=== PATIENT | male | born 1940 | race Caucasian/White ===

== ENCOUNTER 2016-07-24 06:05 | Inpatient (IN) | payer OTHER, BC ==
[2016-07-24] VITALS (10 sets, daily range): BP systolic 116–145; BP diastolic 64–94
[~2016-07-24] VITALS: Ht 180.3 cm; Wt 74.1 kg
[~2016-07-24 06:05] MED LIST: ALTACE2.5 MG PO; ALTACE5 MG PO; ASPIR 8181 M1 PO; ASPIR 8181 MG PO; CALTRATE 600600 MG PO; CO Q-10200 MG PO; COUMADIN2 MG PO; COUMADIN3 M1 PO; COUMADIN3 MG PO; CRESTOR20 MG PO; GLUCOSAMINE &1 EACH PO; METHYFOLATE PO; NITROSTAT0.4 MG SL; TOPROL XL100 MG PO; TOPROL XL25 MG PO; VITAMIN D31000 UNI2 PO; XANAX0.25 MG PO; ZETIA10 MG PO
[2016-07-24 06:43] LABS: HEMATOCRIT 25.4 % (38.0-50.0); MCH 27.7 PG (29.0-34.0); MCHC 33.1 G/DL (30.0-36.0); MCV 83.8 FL (86-99); PLATELET COUNT 378 K/uL (156-360); RBC DIS.WIDTH-CV 19.5 % (11.8-14.6); RBC DIS.WIDTH-SD 57.5 % (39-53); RED BLOOD COUNT 3.03 M/uL (4.00-5.50); WHITE BLOOD COUNT 7.2 K/uL (4.1-10.2)
[2016-07-24 07:18] LABS: ANION GAP 10 MEQ/L (2-14); CHLORIDE 98 MEQ/L (99-109); SAMPLE HEMOLYSIS CHECK 0; SAMPLE ICTERIC CHECK 0; SAMPLE LIPEMIA CHECK 0; SODIUM 130 MEQ/L (136-147); TOTAL BILIRUBIN 0.7 MG/DL (0.0-1.0)
[2016-07-24 07:19] LABS: POTASSIUM 4.1 MEQ/L (3.7-5.4)
[2016-07-24 07:24] LABS: ALKALINE PHOSPHATASE 88 IU/L (3-129); GFR ESTIMATE (CALCULATED) > 59 mL/min/; GLUCOSE 126 mg/dL (70-99); UREA NITROGEN (BUN) 18 mg/dL (9-23)
[2016-07-24 08:45] LABS: INTER. NORMALIZED RATIO 3.2; PROTHROMBIN TIME 33.4 (9.2-11.2)
[2016-07-24 08:54] LABS: TROP-I INTERPRETATION NEGATIVE; TROPONIN-I < 0.01 ng/mL (0.0-0.30)
[2016-07-24 09:32] LABS: ADD MIUA? NO; BILIRUBIN SMALL; BLOOD NEGATIVE; COLOR DK YELLOW ((YELLOW)); GLUCOSE (STRIP) NEGATIVE; KETONES 15; LEUKOCYTES NEGATIVE; NITRITE NEGATIVE; PH, URINE 5.5 (5-8); PROTEIN (STRIP) NEGATIVE; SPECIFIC GRAVITY 1.025 (1.000-1.030); UCUL ADDED? NO
[2016-07-24] MEDS ORDERED: METOPROLOL SUCC50 MG PO (09:56)
[2016-07-24] MEDS ORDERED: CALTRATE 600 +1 EAC1 PO (09:59)
[2016-07-24] MEDS ORDERED: LASIX20 MG PO (09:59)
[2016-07-24] MEDS ORDERED: FERROUS SULFAT325 MG PO (10:00)
[2016-07-24] MEDS ORDERED: ANORO ELLIPTA1 EACH IH (10:00)
[2016-07-24] MEDS ORDERED: DEXILANT30 MG PO (10:01)
[2016-07-24] MEDS ORDERED: METFORMIN HCL500 MG PO (10:01)
[2016-07-24] MEDS ORDERED: PROBIOTIC1 EAC1 PO (10:02)
[2016-07-24] MEDS ORDERED: B-COMPLEX-VITA1 EACH PO (10:03)
[2016-07-24 16:02] LABS: PROTHROMBIN TIME 21.2 (9.2-11.2)
[2016-07-24 18:17] LABS: INTER. NORMALIZED RATIO 1.7; PROTHROMBIN TIME 17.3 (9.2-11.2)
[2016-07-25 00:50] LABS: CHLORIDE 101 mEq/L (99-109); HEMATOCRIT 28.1 % (38.0-50.0); MCH 27.6 PG (29.0-34.0); MCHC 32.4 G/DL (30.0-36.0); MCV 85.2 FL (86-99); MEAN PLAT.VOLUME 9.1 uM^3 (9.0-12.4); PLATELET COUNT 285 K/uL (156-360); POTASSIUM 3.8 mEq/L (3.7-5.4); RBC DIS.WIDTH-CV 19.1 % (11.8-14.6); RBC DIS.WIDTH-SD 58.3 % (39-53); SODIUM 133 mEq/L (136-147)
[2016-07-25 00:51] LABS: WHITE BLOOD COUNT 1.1 K/uL (4.1-10.2)
[2016-07-25 00:52] LABS: GLUCOSE 132 mg/dL (70-99)
[2016-07-25 00:53] LABS: ANION GAP 12 MEQ/L (2-14)
[2016-07-25 00:56] LABS: GFR ESTIMATE (CALCULATED) > 59 mL/min/; UREA NITROGEN (BUN) 17 mg/dL (9-23)
[2016-07-25 01:17] VITALS: BP 105/61
[2016-07-25 04:30] VITALS: BP 108/65
[2016-07-25 06:18] LABS: EOSINOPHIL (%) 0 % (0-5); HEMATOCRIT 26.6 % (38.0-50.0); LYMPHOCYTE COUNT 0.4 K/uL (1.0-2.8); MCH 27.6 PG (29.0-34.0); MCHC 32.7 G/DL (30.0-36.0); MCV 84.4 FL (86-99); MEAN PLAT.VOLUME 9.4 uM^3 (9.0-12.4); MONOCYTE (%) 23.6 % (3-12); MONOCYTE COUNT 0.6 K/uL (0-0.8); NEUTROPHIL COUNT 1.6 K/uL (1.8-6.4); PLATELET COUNT 254 K/uL (156-360); RBC DIS.WIDTH-SD 58.6 % (39-53); RED BLOOD COUNT 3.15 M/uL (4.00-5.50)
[2016-07-25 06:20] LABS: WHITE BLOOD COUNT 2.5 K/uL (4.1-10.2)
[2016-07-25 06:43] LABS: ANION GAP 10 MEQ/L (2-14); CHLORIDE 102 MEQ/L (99-109); GFR ESTIMATE (CALCULATED) > 59 mL/min/; GLUCOSE 107 mg/dL (70-99); POTASSIUM 3.2 MEQ/L (3.7-5.4); SAMPLE HEMOLYSIS CHECK 0; SAMPLE ICTERIC CHECK 0; SAMPLE LIPEMIA CHECK 0; SODIUM 133 MEQ/L (136-147); UREA NITROGEN (BUN) 19 mg/dL (9-23)
[2016-07-25 07:46] VITALS: BP 123/72
[2016-07-25 09:02] LABS: INTER. NORMALIZED RATIO 1.4; PROTHROMBIN TIME 14.7 (9.2-11.2)
[2016-07-25 09:16] LABS: HEMATOLOGY COMMENT 1 SMEAR COMPATIBLE; USER ID SDF
[2016-07-25 12:13] VITALS: BP 111/72
[2016-07-25 16:42] VITALS: BP 113/61
[2016-07-25 19:24] LABS: INTER. NORMALIZED RATIO 1.5; PROTHROMBIN TIME 15.6 (9.2-11.2)
[2016-07-25 20:36] VITALS: BP 127/74
[2016-07-26] VITALS (7 sets, daily range): BP systolic 115–134; BP diastolic 59–76
[2016-07-26 06:30] LABS: HEMATOCRIT 27.1 % (38.0-50.0); MCH 27.7 PG (29.0-34.0); MCHC 32.5 G/DL (30.0-36.0); MCV 85.2 FL (86-99); PLATELET COUNT 263 K/uL (156-360); RBC DIS.WIDTH-CV 19.1 % (11.8-14.6); RBC DIS.WIDTH-SD 59.3 % (39-53); RED BLOOD COUNT 3.18 M/uL (4.00-5.50)
[2016-07-26 07:06] LABS: ANION GAP 10 MEQ/L (2-14); CHLORIDE 105 MEQ/L (99-109); GFR ESTIMATE (CALCULATED) > 59 mL/min/; GLUCOSE 110 mg/dL (70-99); SAMPLE HEMOLYSIS CHECK 2; SAMPLE ICTERIC CHECK 0; SAMPLE LIPEMIA CHECK 0; SODIUM 137 MEQ/L (136-147); UREA NITROGEN (BUN) 25 mg/dL (9-23)
[2016-07-26 07:09] LABS: POTASSIUM 4.9 MEQ/L (3.7-5.4)
[2016-07-26 18:27] LABS: INTER. NORMALIZED RATIO 1.4
[2016-07-27 04:10] VITALS: BP 109/63
[2016-07-27 07:55] VITALS: BP 96/56
[2016-07-27 08:03] LABS: HEMATOCRIT 27.7 % (38.0-50.0); MCH 27.5 PG (29.0-34.0); MCHC 32.9 G/DL (30.0-36.0); MCV 83.7 FL (86-99); MEAN PLAT.VOLUME 9.7 uM^3 (9.0-12.4); PLATELET COUNT 260 K/uL (156-360); RBC DIS.WIDTH-CV 19.1 % (11.8-14.6); RBC DIS.WIDTH-SD 58.8 % (39-53); RED BLOOD COUNT 3.31 M/uL (4.00-5.50); WHITE BLOOD COUNT 3.3 K/uL (4.1-10.2)
[2016-07-27 11:01] LABS: ANION GAP 14 MEQ/L (2-14); CHLORIDE 110 MEQ/L (99-109); GFR ESTIMATE (CALCULATED) > 59 mL/min/; GLUCOSE 91 mg/dL (70-99); POTASSIUM 4.4 MEQ/L (3.7-5.4); SAMPLE HEMOLYSIS CHECK 0; SAMPLE ICTERIC CHECK 0; SAMPLE LIPEMIA CHECK 0; SODIUM 140 MEQ/L (136-147); UREA NITROGEN (BUN) 35 mg/dL (9-23)
[2016-07-27 16:47] VITALS: BP 104/65
[2016-07-27 18:27] LABS: INTER. NORMALIZED RATIO 1.5; PROTHROMBIN TIME 15.9 (9.2-11.2)
[2016-07-27 19:37] VITALS: BP 92/65
[2016-07-27 23:35] VITALS: BP 153/58
[2016-07-28] VITALS (10 sets, daily range): BP systolic 60–152; BP diastolic 43–78
[2016-07-28 06:46] LABS: ANION GAP 12 MEQ/L (2-14); CHLORIDE 102 MEQ/L (99-109); GFR ESTIMATE (CALCULATED) > 59 mL/min/; SAMPLE HEMOLYSIS CHECK 0; SAMPLE ICTERIC CHECK 0; SAMPLE LIPEMIA CHECK 0; SODIUM 136 MEQ/L (136-147); UREA NITROGEN (BUN) 38 mg/dL (9-23)
[2016-07-28 06:48] LABS: GLUCOSE 155 mg/dL (70-99); POTASSIUM 3.4 MEQ/L (3.7-5.4)
[2016-07-28 18:13] LABS: INTER. NORMALIZED RATIO 1.8; PROTHROMBIN TIME 18.7 (9.2-11.2)
[2016-07-28 20:35] LABS: HEMATOCRIT 26.4 % (38.0-50.0); MCH 26.5 PG (29.0-34.0); MCV 80.5 FL (86-99); MEAN PLAT.VOLUME 9.5 uM^3 (9.0-12.4); PLATELET COUNT 207 K/uL (156-360); RBC DIS.WIDTH-CV 18.1 % (11.8-14.6); RBC DIS.WIDTH-SD 53.4 % (39-53); RED BLOOD COUNT 3.28 M/uL (4.00-5.50)
[2016-07-28 21:34] LABS: C DIFF TOXIN POSITIVE (NEGATIVE)
[2016-07-28 21:37] LABS: PROBE CHECK PASS
[2016-07-29] VITALS (12 sets, daily range): BP systolic 58–92; BP diastolic 36–59
[2016-07-29 05:10] LABS: METH RESISTANT S AUREUS PCR NEGATIVE (NEGATIVE)
[2016-07-29 05:13] LABS: PROBE CHECK PASS; SPECIMEN PROCESSING CONTROL PASS
[2016-07-29 06:55] LABS: EOSINOPHIL (%) 0.2 % (0-5); HEMATOCRIT 32.9 % (38.0-50.0); IMMATURE GRANULOCYTE (%) 0.6 % (0.0-0.7); IMMATURE GRANULOCYTE COUNT 0.1 K/uL; LYMPHOCYTE COUNT 0.7 K/uL (1.0-2.8); MCH 28.1 PG (29.0-34.0); MCHC 34.3 G/DL (30.0-36.0); MCV 81.8 FL (86-99); MONOCYTE (%) 9.8 % (3-12); NEUTROPHIL (%) 82.2 % (45-76); NEUTROPHIL COUNT 8.1 K/uL (1.8-6.4); RBC DIS.WIDTH-CV 17.7 % (11.8-14.6); RBC DIS.WIDTH-SD 52.9 % (39-53)
[2016-07-29 07:03] LABS: RED BLOOD COUNT 4.02 M/uL (4.00-5.50); WHITE BLOOD COUNT 9.9 K/uL (4.1-10.2)
[2016-07-29 07:18] LABS: CHLORIDE 102 MEQ/L (99-109); GFR ESTIMATE (CALCULATED) 35 mL/min/; POTASSIUM 3.5 MEQ/L (3.7-5.4); SODIUM 137 MEQ/L (136-147); UREA NITROGEN (BUN) 52 mg/dL (9-23)
[2016-07-29 07:19] LABS: ANION GAP 12 MEQ/L (2-14); MAGNESIUM 2.6 mg/dl (1.3-2.7); SAMPLE HEMOLYSIS CHECK 0; SAMPLE ICTERIC CHECK 0; SAMPLE LIPEMIA CHECK 0
[2016-07-29 07:24] LABS: GLUCOSE 102 mg/dL (70-99)
[2016-07-29 07:50] LABS: HEMATOLOGY COMMENT 1 SMEAR COMPATIBLE; MEAN PLAT.VOLUME 9.8 uM^3 (9.0-12.4); PLAT.SUFFICIENCY ADEQUATE; USER ID CL
[2016-07-29 08:16] LABS: PLATELET COUNT 144 K/uL (156-360)
[2016-07-29 14:37] LABS: UR CREATININE CONCENTRATION 167.2 MG/DL
[2016-07-29 19:00] LABS: ANION GAP 8 MEQ/L (2-14); CHLORIDE 105 MEQ/L (99-109); GFR ESTIMATE (CALCULATED) 45 mL/min/; GLUCOSE 137 mg/dL (70-99); POTASSIUM 2.8 MEQ/L (3.7-5.4); SAMPLE HEMOLYSIS CHECK 0; SAMPLE ICTERIC CHECK 0; SAMPLE LIPEMIA CHECK 0; SODIUM 141 MEQ/L (136-147); UREA NITROGEN (BUN) 48 mg/dL (9-23)
[2016-07-29 19:02] LABS: INTER. NORMALIZED RATIO 2.3; PROTHROMBIN TIME 23.7 (9.2-11.2)
[2016-07-30] VITALS (10 sets, daily range): BP systolic 73–106; BP diastolic 40–66
[2016-07-30 03:21] LABS: CHLORIDE 106 mEq/L (99-109); POTASSIUM 2.9 mEq/L (3.7-5.4); SODIUM 145 mEq/L (136-147)
[2016-07-30 03:22] LABS: GLUCOSE 140 mg/dL (70-99)
[2016-07-30 03:24] LABS: ANION GAP 11 MEQ/L (2-14)
[2016-07-30 03:26] LABS: GFR ESTIMATE (CALCULATED) > 59 mL/min/
[2016-07-30 03:27] LABS: UREA NITROGEN (BUN) 48 mg/dL (9-23)
[2016-07-30 05:00] LABS: ADD MIUA? YES; BILIRUBIN SMALL; BLOOD LARGE; GLUCOSE (STRIP) NEGATIVE; KETONES TRACE; LEUKOCYTES SMALL; NITRITE POSITIVE; PH, URINE 5.5 (5-8); PROTEIN (STRIP) TRACE; SPECIFIC GRAVITY 1.022 (1.000-1.030)
[2016-07-30 05:12] LABS: COLOR AMBER ((YELLOW))
[2016-07-30 05:25] LABS: CASTS PRESENT /LPF; COARSE GRANULAR CASTS 0-5 /LPF; EPITHELIAL CELLS 1+; FINE GRANULAR CASTS 0-5 /LPF; HYALINE CASTS 0-5 /LPF; MUCUS TRACE
[2016-07-30 05:27] LABS: BACTERIA RARE; CRYSTALS NONE SEEN; UCUL ADDED? NO; WHITE BLOOD CELLS 0-5 /HPF (0-5)
[2016-07-30 08:50] LABS: HEMATOCRIT 29.7 % (38.0-50.0); MCH 27.6 PG (29.0-34.0); MCHC 34.3 G/DL (30.0-36.0); MCV 80.3 FL (86-99); MEAN PLAT.VOLUME 10.3 uM^3 (9.0-12.4); PLATELET COUNT 129 K/uL (156-360); RBC DIS.WIDTH-CV 17.3 % (11.8-14.6); RBC DIS.WIDTH-SD 50.9 % (39-53); WHITE BLOOD COUNT 10.7 K/uL (4.1-10.2)
[2016-07-30 08:54] LABS: EOSINOPHIL (%) 0.2 % (0-5); IMMATURE GRANULOCYTE (%) 0.7 % (0.0-0.7); IMMATURE GRANULOCYTE COUNT 0.1 K/uL; LYMPHOCYTE COUNT 0.7 K/uL (1.0-2.8); MONOCYTE (%) 8.3 % (3-12); MONOCYTE COUNT 0.9 K/uL (0-0.8); NEUTROPHIL (%) 83.8 % (45-76)
[2016-07-30 09:29] LABS: MAGNESIUM 2.5 mg/dl (1.3-2.7)
[2016-07-30 10:24] LABS: HEMATOLOGY COMMENT 1 SMEAR COMPATIBLE; PLAT.SUFFICIENCY ADEQUATE
[2016-07-30 11:39] LABS: ANION GAP 8 MEQ/L (2-14); CHLORIDE 107 MEQ/L (99-109); GFR ESTIMATE (CALCULATED) > 59 mL/min/; GLUCOSE 141 mg/dL (70-99); POTASSIUM 3.3 MEQ/L (3.7-5.4); SODIUM 146 MEQ/L (136-147); UREA NITROGEN (BUN) 44 mg/dL (9-23)
[2016-07-30 13:50] LABS: ANION GAP 9 MEQ/L (2-14); CHLORIDE 108 MEQ/L (99-109); GFR ESTIMATE (CALCULATED) > 59 mL/min/; GLUCOSE 133 mg/dL (70-99); POTASSIUM 3.3 MEQ/L (3.7-5.4); SAMPLE HEMOLYSIS CHECK 0; SAMPLE ICTERIC CHECK 0; SAMPLE LIPEMIA CHECK 0; SODIUM 149 MEQ/L (136-147); UREA NITROGEN (BUN) 40 mg/dL (9-23)
[2016-07-30 18:25] LABS: ANION GAP 8 MEQ/L (2-14); CHLORIDE 109 MEQ/L (99-109); GFR ESTIMATE (CALCULATED) > 59 mL/min/; GLUCOSE 124 mg/dL (70-99); MAGNESIUM 2.4 mg/dl (1.3-2.7); POTASSIUM 3.5 MEQ/L (3.7-5.4); SAMPLE HEMOLYSIS CHECK 0; SAMPLE ICTERIC CHECK 0; SAMPLE LIPEMIA CHECK 0; SODIUM 152 MEQ/L (136-147); UREA NITROGEN (BUN) 35 mg/dL (9-23)
[2016-07-30 19:18] LABS: INTER. NORMALIZED RATIO 2.8; PROTHROMBIN TIME 29.8 (9.2-11.2)
[2016-07-31] VITALS (14 sets, daily range): BP systolic 75–112; BP diastolic 36–71
[2016-07-31 00:35] LABS: CHLORIDE 112 mEq/L (99-109); POTASSIUM 3.1 mEq/L (3.7-5.4); SODIUM 155 mEq/L (136-147)
[2016-07-31 00:36] LABS: MAGNESIUM 2.2 mg/dL (1.3-2.7)
[2016-07-31 00:37] LABS: GLUCOSE 125 mg/dL (70-99)
[2016-07-31 00:38] LABS: ANION GAP 10 MEQ/L (2-14)
[2016-07-31 00:41] LABS: GFR ESTIMATE (CALCULATED) > 59 mL/min/
[2016-07-31 00:42] LABS: UREA NITROGEN (BUN) 33 mg/dL (9-23)
[2016-07-31 06:04] LABS: BASOPHIL COUNT 0.1 K/uL (0-0.1); EOSINOPHIL (%) 0.4 % (0-5); HEMATOLOGY COMMENT 1 REV; IMMATURE GRANULOCYTE (%) 1.5 % (0.0-0.7); IMMATURE GRANULOCYTE COUNT 0.1 K/uL; LYMPHOCYTE COUNT 0.7 K/uL (1.0-2.8); MCHC 33.3 G/DL (30.0-36.0); MCV 83.9 FL (86-99); MEAN PLAT.VOLUME 11.2 uM^3 (9.0-12.4); MONOCYTE (%) 6.1 % (3-12); MONOCYTE COUNT 0.5 K/uL (0-0.8); NEUTROPHIL (%) 82.4 % (45-76); NEUTROPHIL COUNT 6.6 K/uL (1.8-6.4); NRBC (%) 2.3 /100 WBC (0-0); PLAT.SUFFICIENCY DECREASED; PLATELET COUNT 82 K/uL (156-360); RBC DIS.WIDTH-CV 18.1 % (11.8-14.6); RBC DIS.WIDTH-SD 55.2 % (39-53); RED BLOOD COUNT 3.22 M/uL (4.00-5.50); USER ID SLU
[2016-07-31 06:08] LABS: ALKALINE PHOSPHATASE 46 IU/L (3-129); ANION GAP 11 MEQ/L (2-14); ANION GAP 7 MEQ/L (2-14); CHLORIDE 112 MEQ/L (99-109); GFR ESTIMATE (CALCULATED) > 59 mL/min/; GLUCOSE 103 mg/dL (70-99); GLUCOSE 109 mg/dL (70-99); MAGNESIUM 2.3 mg/dl (1.3-2.7); POTASSIUM 3.3 MEQ/L (3.7-5.4); PREALBUMIN < 3.0 mg/dL (10-40); SAMPLE HEMOLYSIS CHECK 0; SAMPLE ICTERIC CHECK 0; SAMPLE LIPEMIA CHECK 0; SODIUM 157 MEQ/L (136-147); SODIUM 159 MEQ/L (136-147); TRIGLYCERIDES 54 MG/DL (Normal: <150); UREA NITROGEN (BUN) 32 mg/dL (9-23); UREA NITROGEN (BUN) 33 mg/dL (9-23)
[2016-07-31 06:09] LABS: ALKALINE PHOSPHATASE 46 IU/L (3-129); TOTAL BILIRUBIN 1.9 MG/DL (0.0-1.0)
[2016-07-31 13:39] LABS: BASE EXCESS 15.6 mEq/L (-3 to +3); BICARBONATE 40.1 mEq/L (22-26); CARBOXY HGB 1.4 % (0-5); METHEMOGLOBIN 1.4 % (0-1.5); PCO2 48 mm Hg (35-45); PO2 55 mm Hg (80-100); pH 7.53 (7.35-7.45)
[2016-07-31 13:41] LABS: COMMENTS - BLOOD GASES A+C+; DEVICE 840; FI02 100 %; MECHANICAL RATE 16 resp/min; MODE AC; PEEP 8 CM/H20; SITE LR; TIDAL VOLUME 520 ML; TOTAL RESP RATE 19 resp/min
[2016-07-31 14:13] LABS: BASE EXCESS 10.3 mEq/L (-3 to +3); BICARBONATE 36.3 mEq/L (22-26); CARBOXY HGB 1.4 % (0-5); METHEMOGLOBIN 1.3 % (0-1.5)
[2016-07-31 14:14] LABS: COMMENTS - BLOOD GASES C+; DEVICE 840; FI02 100 %; MECHANICAL RATE 16 resp/min; MODE AC; PCO2 56 mm Hg (35-45); PEEP 15 CM/H20; PO2 47 mm Hg (80-100); SITE ALINE; TIDAL VOLUME 500 ML; TOTAL RESP RATE 20 resp/min; pH 7.42 (7.35-7.45)
[2016-07-31 14:43] LABS: ANION GAP 12 MEQ/L (2-14); CHLORIDE 113 MEQ/L (99-109); GFR ESTIMATE (CALCULATED) > 59 mL/min/; GLUCOSE 100 mg/dL (70-99); MAGNESIUM 2.2 mg/dl (1.3-2.7); POTASSIUM 2.9 MEQ/L (3.7-5.4); SAMPLE HEMOLYSIS CHECK 0; SAMPLE ICTERIC CHECK 0; SAMPLE LIPEMIA CHECK 0; SODIUM 160 MEQ/L (136-147); UREA NITROGEN (BUN) 30 mg/dL (9-23)
[2016-07-31 17:23] LABS: BASE EXCESS 10.7 mEq/L (-3 to +3); BICARBONATE 35.7 mEq/L (22-26); CARBOXY HGB 1.3 % (0-5); COMMENTS - BLOOD GASES C+; DEVICE 840; FI02 100 %; METHEMOGLOBIN 0.9 % (0-1.5); MODE BILEVEL; PCO2 49 mm Hg (35-45); PO2 61 mm Hg (80-100); SITE ALINE; pH 7.47 (7.35-7.45)
[2016-07-31 17:24] LABS: CONTINUOUS POS AIRWAY PRESSURE 5 cm H2O; MECHANICAL RATE 14 resp/min; PEEP 30 CM/H20; TOTAL RESP RATE 26 resp/min
[2016-07-31 18:20] LABS: INTER. NORMALIZED RATIO 1.9; PROTHROMBIN TIME 20.1 (9.2-11.2)
[2016-07-31 18:36] LABS: ANION GAP 12 MEQ/L (2-14); CHLORIDE 115 MEQ/L (99-109); GFR ESTIMATE (CALCULATED) > 59 mL/min/; GLUCOSE 98 mg/dL (70-99); MAGNESIUM 2.1 mg/dl (1.3-2.7); POTASSIUM 3.3 MEQ/L (3.7-5.4); SAMPLE HEMOLYSIS CHECK 0; SAMPLE ICTERIC CHECK 0; SAMPLE LIPEMIA CHECK 0; SODIUM 159 MEQ/L (136-147); UREA NITROGEN (BUN) 31 mg/dL (9-23)
== END 2016-07-31 21:45 | disposition short-term general hospital (02) | DRG 329 ==
LOC: EME 06:05 → 3EAST 15:00 → 4WEST 15:00 → EDOF 15:00 → 5EAST 15:00 → 4EAST 15:00 → 3EAST 20:00 → 4EAST 07-25 01:14 → 5EAST 07-27 18:31 → 4EAST 07-28 22:34 → 4WEST 07-29 03:10
PROVIDERS: Emergency Medicine; Internal Medicine Cardiovascular Disease; Internal Medicine Nephrology; Physician Assistant; Surgery
DX: C18.9 Malignant neoplasm of colon, unspecified (principal); E43 Unspecified severe protein-calorie malnutrition; I50.22 Chronic systolic (congestive) heart failure; K92.2 Gastrointestinal hemorrhage, unspecified; K92.1 Melena; K56.7 Ileus, unspecified; A04.7 Enterocolitis due to Clostridium difficile; N17.0 Acute kidney failure with tubular necrosis; K56.60 Unspecified intestinal obstruction; I25.10 Atherosclerotic heart disease of native coronary artery without angina pectoris; I48.2 Chronic atrial fibrillation; I25.5 Ischemic cardiomyopathy; R06.89 Other abnormalities of breathing; E87.6 Hypokalemia; E78.5 Hyperlipidemia, unspecified; D64.9 Anemia, unspecified; I10 Essential (primary) hypertension; I95.9 Hypotension, unspecified; I25.2 Old myocardial infarction; F17.200 Nicotine dependence, unspecified, uncomplicated; T45.515A Adverse effect of anticoagulants, initial encounter; J44.9 Chronic obstructive pulmonary disease, unspecified; Z91.013 Allergy to seafood; Z88.8 Allergy status to other drugs, medicaments and biological substances; Z95.0 Presence of cardiac pacemaker
CPT/HCPCS: 36600; 36620; 71010; 71275; 74176; 74270; 76770; 76937; 80048; 80048 91; 80053; 80076; 81003; 82378; 82533 91; 82570; 82803; 82948; 83735; 84100; 84134; 84156; 84300; 84478; 84484; 84550; 84630 90; 84999; 85025; 85027; 85610; 86850; 86900; 86901; 86920; 87040; 87070; 87075; 87076; 87077; 87185; 87186; 87205; 87493; 87641; 88309; 93005; 94002; 94640; 94640 76; 94799; 97530 GO; 97530 GP; 99202; 99281; 99285; C1751; J0690; J1160; J1170; J1200; J1335; J1630; J1644; J1940; J2250; J2270; J2405; J2543; J2704; J2710; J3010; J3370; J3430; J3475; J3480; J7030; J7040; J7042; J7050; P9016; P9017; P9045; S0028; S0030